=== PATIENT | female | born 1980 | race Hispanic/Latino ===

== ENCOUNTER 2017-04-23 11:32 | Emergency (ER) | payer OTHER ==
[2017-04-23 12:08] LABS: #Basophils 0.1 thou/uL (0.0-0.2); #Eosinphils 0.1 thou/uL (0.0-0.7); #Lymphocytes 2.1 thou/uL (1.20-3.40); #Monocytes 0.6 thou/uL (0.11-0.59); #Neutrophils 8.2 thou/uL (1.40-6.50); %Basophils 0.5 % (0.0-1.0); %Eosinophils 0.9 % (0.0-10.0); %Monocytes 5.7 % (0.0-10.0); Hemoglobin 13.8 g/dL (12.0-16.0); Mean Corpuscular HGB CONC 33.6 g/dL (32.0-36.0); Mean Corpuscular Hemoglobin 31.9 pg (27.0-31.0); Mean Corpuscular Volume 94.8 fl (81.0-99.0); Mean Platelet Volume 7.8 fL (7.4-10.4); Platelet Count 236 thou/uL (130-400); RBC Distribution Width 12.1 % (11.5-14.5); Red Blood Cell (RBC) Count 4.33 mill/uL (4.20-5.40); White Blood Cell (WBC) Count 11.1 thou/uL (4.8-10.8)
[2017-04-23 12:30] LABS: ALT (SGPT) 86 U/L (8-55); AST (SGOT) 59 U/L (5-34); Albumin 4.1 g/dL (3.5-5.0); Alkaline Phosphatase 103 U/L (40-150); Anion Gap 12 mmol/L (10-20); BUN (Urea Nitrogen) 9 mg/dL (7.0-18.7); Bilirubin, Total 0.4 mg/dL (0.2-1.2); Calc. Creatinine Clearance 0 mL/min (70-130); Calcium 9.7 mg/dL (7.8-10.44); Carbon Dioxide 23 mmol/L (22-29); Chloride 105 mmol/L (98-107); Estimated GFR-MDRD 88; Glucose 95 mg/dL (70-105); Protein, Total 8.1 g/dL (6.0-8.3); Sodium 136 mmol/L (136-145)
[2017-04-23 13:59] LABS: Bilirubin Negative (Negative); Blood, Urine Negative (Negative); Clarity CLEAR (Clear); Glucose, Urine (Dipstick) Negative (Negative); Leukocyte Small (Negative); Nitrite Negative (Negative); Protein, Urine (Dipstick) Negative (Neg-Trace); Specific Gravity, Urine 1.025 (1.002-1.036); pH, Urine 6.5 (5.0-9.0)
[2017-04-23 14:01] LABS: Bacteria/HPF 1+ HPF (None Seen); Hyaline Casts/LPF 0-3 HYALINE CAST LPF (0-3 Hyaline); Pathc Cast-AUWi Flag 0.27 (0-2.49); Squamous Epithelial 0-3 HPF (0-3)
[2017-04-23 14:05] LABS: Pregnancy Test - Urine (BHCG) Negative (Negative); Pregu Control Background? CLEAR/WHITE (CLR/WHITE); Pregu Control Bar Appear? YES (CONTROL BAR); RBC/HPF None Seen HPF (0-3); Specific Gravity 1.025 (1.002-1.036)
[2017-04-23] MEDS ORDERED: Ondansetron HCl/PF 4 MG/2 ML Vial ONE (14:30)
[2017-04-23] MEDS ORDERED: Fentanyl 100 MCG/2 ML VIAL ONE (14:30)
[2017-04-23] MEDS ORDERED: Metoclopramide HCl 10 MG/2 ML VIAL ONE (15:46)
[2017-04-23] MEDS ORDERED: Ketorolac Tromethamine 30 MG/ML VIAL ONE (15:46)
== END 2017-04-23 16:34 | disposition home or self-care (01) ==
LOC: ERS 11:32
DX: N39.0 Urinary tract infection, site not specified (principal); R51 Headache
CPT/HCPCS: 36415; 80053; 81003; 81015; 81025; 85025; 87804; 96361; 96374; 96375; J0696; J1885; J2405; J2765; J3010

== ENCOUNTER 2017-07-28 20:10 | Emergency (ER) | payer OTHER ==
[2017-07-28 21:07] LABS: #Basophils 0.1 thou/uL (0.0-0.2); #Eosinphils 0.5 thou/uL (0.0-0.7); #Lymphocytes 2.1 thou/uL (1.20-3.40); #Monocytes 0.6 thou/uL (0.11-0.59); %Basophils 1.1 % (0.0-1.0); %Eosinophils 7.5 % (0.0-10.0); %Lymphocytes 33.7 % (21.0-51.0); %Monocytes 9.2 % (0.0-10.0); %Neutrophils 48.5 % (42.0-75.0); Hemoglobin 12.9 g/dL (12.0-16.0); Mean Corpuscular HGB CONC 34.1 g/dL (32.0-36.0); Mean Corpuscular Volume 90.9 fl (81.0-99.0); Mean Platelet Volume 7.5 fL (7.4-10.4); Platelet Count 302 thou/uL (130-400); RBC Distribution Width 11.8 % (11.5-14.5); Red Blood Cell (RBC) Count 4.15 mill/uL (4.20-5.40); White Blood Cell (WBC) Count 6.2 thou/uL (4.8-10.8)
--- NOTE | 2017-07-28 21:22 | RAD ---
RADIOGRAPH CHEST 1 VIEW: 07/28/17 HISTORY: 36-year-old female with intermittent chest pain. FINDINGS: There are no air space densities, pulmonary edema, pneumothorax, or cardiomegaly. The lateral costop hrenic angles are sharp. IMPRESSION: No acute cardiopulmonary findings. jn [] POS: JIN
[2017-07-28 21:23] LABS: ALT (SGPT) 19 U/L (8-55); AST (SGOT) 24 U/L (5-34); Albumin 4.2 g/dL (3.5-5.0); Alkaline Phosphatase 65 U/L (40-150); Anion Gap 13 mmol/L (10-20); BUN (Urea Nitrogen) 10 mg/dL (7.0-18.7); Bilirubin, Total Less than 0.2 mg/dL (0.2-1.2); CK (CPK) 62 U/L (29-168); Calc. Creatinine Clearance 0 mL/min (70-130); Calcium 9.2 mg/dL (7.8-10.44); Carbon Dioxide 25 mmol/L (22-29); Chloride 107 mmol/L (98-107); Estimated GFR-MDRD 87; Globulin 3.5 g/dL (2.4-3.5); Glucose 111 mg/dL (70-105); Lipase 59 U/L (8-78); Potassium 3.5 mmol/L (3.5-5.1); Protein, Total 7.7 g/dL (6.0-8.3); Sodium 141 mmol/L (136-145)
[2017-07-28 21:28] LABS: CKMB 0.5 ng/mL (0-6.6); Troponin I Less than 0.010 ng/mL (< 0.028)
== END 2017-07-28 22:20 | disposition home or self-care (01) ==
LOC: ERS 20:10
DX: R07.89 Other chest pain (principal); I25.2 Old myocardial infarction; G43.909 Migraine, unspecified, not intractable, without status migrainosus
CPT/HCPCS: 36415; 71045; 80053; 82550; 82553; 83690; 83880; 84484; 85025; 93005

== ENCOUNTER 2017-10-17 07:10 | Outpatient (CLI) | payer OTHER | END 2017-10-17 07:11 | disposition home or self-care (01) | LOC: BICULT 07:10 | PROVIDERS: ATTEND Student in an Organized Health Care Education/Training Program | DX: N94.10 Unspecified dyspareunia (principal); R10.2 Pelvic and perineal pain | CPT/HCPCS: 76856 ==

== ENCOUNTER 2017-11-08 19:30 | Outpatient (CLI) | payer OTHER | END 2017-11-08 19:31 | disposition home or self-care (01) | LOC: SLEEPLAB 19:30 | PROVIDERS: ATTEND Family Medicine | DX: G47.33 Obstructive sleep apnea (adult) (pediatric) (principal); G47.9 Sleep disorder, unspecified; E66.9 Obesity, unspecified; Z68.36 Body mass index [BMI] 36.0-36.9, adult | CPT/HCPCS: 95810 ==

== ENCOUNTER 2017-12-12 19:57 | Emergency (ER) | payer OTHER | END 2017-12-12 21:25 | disposition left against medical advice (07) | LOC: ERS 19:57 | DX: Z53.21 Procedure and treatment not carried out due to patient leaving prior to being seen by health care provider (principal) ==

== ENCOUNTER 2017-12-22 19:30 | Outpatient (CLI) | payer OTHER | END 2017-12-22 19:31 | disposition home or self-care (01) | LOC: SLEEPLAB 19:30 | PROVIDERS: ATTEND Student in an Organized Health Care Education/Training Program | DX: G47.33 Obstructive sleep apnea (adult) (pediatric) (principal); E66.9 Obesity, unspecified; Z68.36 Body mass index [BMI] 36.0-36.9, adult | CPT/HCPCS: 95811 ==

== ENCOUNTER 2018-07-08 23:37 | Observation (INO) | payer OTHER ==
[2018-07-08] MEDS ORDERED: Ondansetron ODT 4 MG TAB ONE (23:43)
[2018-07-09 00:01] LABS: Pregnancy Test - Urine (BHCG) Negative (Negative); Pregu Control Background? CLEAR/WHITE (CLR/WHITE); Pregu Control Bar Appear? YES (CONTROL BAR); Specific Gravity 1.021 (1.002-1.036)
[2018-07-09 00:03] LABS: Bilirubin Negative (Negative); Blood, Urine Negative (Negative); Clarity TURBID (Clear); Glucose, Urine (Dipstick) Negative (Negative); Leukocyte Small (Negative); Nitrite Negative (Negative); Protein, Urine (Dipstick) Negative (Neg-Trace)
[2018-07-09 00:05] LABS: Bacteria/HPF Rare-Few HPF (None Seen); Hyaline Casts/LPF 4-6 HYALINE CAST LPF (0-3 Hyaline); Pathc Cast-AUWi Flag 0.27 (0-2.49)
[2018-07-09 00:22] LABS: #Basophils 0.1 thou/uL (0.0-0.2); #Eosinphils 0.4 thou/uL (0.0-0.7); #Monocytes 0.9 thou/uL (0.11-0.59); #Neutrophils 12.8 thou/uL (1.40-6.50); %Basophils 0.6 % (0.0-1.0); %Eosinophils 2.1 % (0.0-10.0); %Lymphocytes 17.6 % (21.0-51.0); %Monocytes 5.4 % (0.0-10.0); %Neutrophils 74.3 % (42.0-75.0); Hemoglobin 13.5 g/dL (12.0-16.0); Mean Corpuscular HGB CONC 33.1 g/dL (32.0-36.0); Mean Corpuscular Volume 93.8 fL (78.0-98.0); Mean Platelet Volume 8.3 fL (7.4-10.4); Platelet Count 275 thou/uL (130-400); RBC Distribution Width 12.3 % (11.5-14.5); Red Blood Cell (RBC) Count 4.34 mill/uL (4.20-5.40); White Blood Cell (WBC) Count 17.2 thou/uL (4.8-10.8)
[2018-07-09 00:42] LABS: ALT (SGPT) 14 U/L (8-55); AST (SGOT) 15 U/L (5-34); Albumin 4.1 g/dL (3.5-5.0); Alkaline Phosphatase 58 U/L (40-150); Anion Gap 10 mmol/L (10-20); BUN (Urea Nitrogen) 10 mg/dL (7.0-18.7); Bilirubin, Total 0.4 mg/dL (0.2-1.2); Calc. Creatinine Clearance 0 mL/min (70-130); Carbon Dioxide 25 mmol/L (22-29); Chloride 106 mmol/L (98-107); Estimated GFR-MDRD Greater than 90; Glucose 105 mg/dL (70-105); Potassium 3.8 mmol/L (3.5-5.1); Protein, Total 7.1 g/dL (6.0-8.3); Sodium 137 mmol/L (136-145)
[2018-07-09] MEDS ORDERED: Morphine 4 MG/ML VIAL ONE (01:17)
[2018-07-09] MEDS ORDERED: Ondansetron PF 4 MG/2 ML Vial ONE ×2 (01:17→14:46)
[2018-07-09] MEDS ORDERED: Piperacillin/Tazobactam 3.375 GM VIAL ONE (01:56)
[2018-07-09] MEDS ORDERED: Sodium Chloride 0.9% 100 ML ONE (01:57)
[2018-07-09] MEDS ORDERED: Sodium Chloride 0.9% 1,000 ML IV SCH ×2 (02:50→12:19)
[2018-07-09] MEDS ORDERED: Ondansetron PF 4 MG/2 ML Vial IVP PRN ×2 (02:50→12:19)
[2018-07-09] MEDS ORDERED: Ondansetron ODT 4 MG TAB SL PRN (02:50)
[2018-07-09] MEDS ORDERED: Morphine 4 MG/ML VIAL SLOW IVP PRN ×3 (02:53→13:15)
[2018-07-09] MEDS: Morphine 4 MG/ML VIAL SLOW IVP PRN ×3 (02:58→07:43)
[2018-07-09 03:22] VITALS: BMI 35.9
[2018-07-09] MEDS ORDERED: Piperacillin/Tazobactam 3.375 GM in Sodium Chloride 0.9% 100 ML IVPB SCH (08:00)
[2018-07-09 08:10] VITALS: TEMP 97.6
--- NOTE | 2018-07-09 08:12 | HP ---
CHIEF COMPLAINT: Appendicitis. HISTORY OF PRESENT ILLNESS: This is a 37-year-old female, who presents with periumbilical, became right lower quadrant pain last night, described as sharp, 10/10, does not radiate to her right back. Not associated with dysuria. She has had some loose stools. She has had nausea, vomiting. No history of chronic abdominal pain or known inflammatory bowel disease. PAST MEDICAL HISTORY: She denies. PAST SURGICAL HISTORY: Includes cholecystectomy, tubal ligation. MEDICATIONS: None. ALLERGIES: NO KNOWN DRUG ALLERGIES. SOCIAL HISTORY: No smoking, alcohol or other drugs. REVIEW OF SYSTEMS: Ten systems review of systems are otherwise negative unless described above. PHYSICAL EXAMINATION: VITAL SIGNS: Blood pressure 120/80, pulse 68, respirations 14, temperature 98.1. HEENT: Sclerae anicteric. Oropharynx clear. NECK: No lymphadenopathy. CHEST: Clear. HEART: Regular rate and rhythm. ABDOMEN: Soft, tender in the right lower quadrant with localized guarding. No rebound. No abdominal or inguinal hernias. EXTREMITIES: No ischemia or edema to extremities. DIAGNOSTIC STUDIES: CT scan shows acute appendicitis. There are a few nonobstructing stones in the right kidney. ASSESSMENT: Acute appendicitis. PLAN: Laparoscopic appendectomy. Risks, benefits, alternatives discussed. She gives consent, we will do this today. Job ID: [id number]
[2018-07-09 09:27] VITALS: BP 108/60
--- NOTE | 2018-07-09 09:45 | CT ---
CT OF THE ABDOMEN AND PELVIS WITH IV CONTRAST: INDICATION: History of nausea and vomiting. COMPARISON: Prior noncontrast CT dated 06/27/2009. FINDINGS: The lung bases are clear. The gallbladder is surgically absent. There is mild fatty infiltration of the liver. The pancreas, adrenal glands, and spleen appear within normal limits. There is stable right nephroli thiasis. The largest stone is seen measuring 3 mm within the inferior pole. There is thinning invol ving the inferior pole of the right kidney which is stable likely related to prior trauma or infectio n. The left kidney is normal-appearing. No free fluid or enlarged lymph nodes are evident. There is an enlarged appendix in the right lower quadrant measuring 1 cm with mild periappendiceal fa t stranding. There is mild free fluid in the pelvis. The bladder, rectum, and perirectal soft tissues are unremarkable-appearing. No acute osseous abnormality is evident. IMPRESSION: 1. Findings most consistent with noncomplicated appendicitis. 2. Right nephrolithiasis. 3. Fatty liver. 4. Mild free fluid in the pelvis. 5. Fat-containing umbilical hernia. 6. Findings called to Dr. Mcnally at 1:23 a.m. on 07/09/2018. CODE CR POS: BH
[2018-07-09] MEDS ORDERED: Fentanyl 100 MCG/2 ML VIAL ONE ×2 (10:44→12:21)
[2018-07-09] MEDS ORDERED: Bupivacaine/Epinephrine 0.25% 30 ML VIAL ONE (10:45)
[2018-07-09] MEDS ORDERED: Promethazine HCl 25 MG/ML VIAL IM PRN ×2 (12:13→12:19)
[2018-07-09] MEDS ORDERED: Promethazine HCl 25 MG/ML VIAL SLOW IVP PRN (12:13)
[2018-07-09] MEDS ORDERED: Ondansetron HCl/PF 4 MG/2 ML Vial IVP PRN (12:13)
[2018-07-09] MEDS ORDERED: hydrALAZINE 20 MG/ML VIAL SLOW IVP PRN (12:19)
[2018-07-09] MEDS ORDERED: HYDROcodone/Acetaminophen 10/325 mg Tablet PO PRN ×2 (12:19)
[2018-07-09] MEDS ORDERED: Dextrose 50% Abboject 50 ML SYRINGE SLOW IVP PRN (12:19)
[2018-07-09] MEDS ORDERED: Dextrose 5% in Water 1,000 ML IV PRN (12:19)
[2018-07-09] MEDS ORDERED: ISOVUE-370 76%-LOCM 1 ML ONE (14:03)
[2018-07-09] MEDS ORDERED: Lidocaine 1% PF 5 ML VIAL ONE (14:46)
[2018-07-09] MEDS ORDERED: Rocuronium Bromide 10 MG/ML (10ML VIAL) ONE (14:46)
[2018-07-09] MEDS ORDERED: Dexamethasone 20 MG/5 ML VIAL ONE (14:46)
[2018-07-09] MEDS ORDERED: ePHEDrine 50 MG/ML VIAL ONE (14:46)
[2018-07-09] MEDS ORDERED: Glycopyrrolate 0.2 MG/ML 5 ML SYRINGE ONE (14:46)
[2018-07-09] MEDS ORDERED: PROPOFOL 200 MG/20 ML VIAL ONE (14:46)
[2018-07-09] MEDS ORDERED: Famotidine/PF 20 mg/2ml Vial SLOW IVP SCH (21:00)
[2018-07-09] MEDS ORDERED: Famotidine 20 MG TAB PO SCH (21:00)
--- NOTE | 2018-07-10 15:15 | OP ---
DATE OF PROCEDURE: 07/09/2018 PREOPERATIVE DIAGNOSIS: Acute appendicitis. POSTOPERATIVE DIAGNOSIS: Acute appendicitis. PROCEDURE PERFORMED: Laparoscopic appendectomy. ANESTHESIA: General. ESTIMATED BLOOD LOSS: Minimal. COMPLICATIONS: None. SPECIMENS: Appendix. FINDINGS: Appendicitis. DESCRIPTION OF PROCEDURE: The patient was taken to the operating room and laid supine on the operating room table. After general anesthetic was obtained, the abdomen was prepped and draped in a sterile fashion. The Jones catheter had been placed prior to the prep. A curved incision was made below the umbilicus, cautery was dissected down to and score the fascia. Abdominal cavity was entered bluntly using a April clamp. Holding stitch of PDS was placed on each side of the fascia. Behzad trocar was placed. High-flow pneumoperitoneum was obtained. A suprapubic 5 mm port and left lower quadrant 5 mm port were placed under direct visualization. The cecum was rolled over to reveal acute appendicitis. A window was made at the base of the appendix and mesoappendix. Laparoscopic stapler was fired across the base of the appendix. A vascular reload fired across the mesoappendix. The appendix was placed in Endo Catch bag and brought out through the Behzad. There was no bleeding on the staple lines. The right lower quadrant and pelvis were irrigated using sterile solution. All port sites were infiltrated using local anesthetic. All ports were removed under camera visualization without bleeding. Pneumoperitoneum was let down. PDS was used to close the fascial defect below the umbilicus. All incisions were irrigated and closed using 4-0 Monocryl and Dermabond. The patient was sent to Recovery in stable condition. All instrument counts, needle counts, and lap counts were correct. Job ID: [id number]
== END 2018-07-09 15:55 | disposition home or self-care (01) ==
LOC: ERS 23:37 → INTOOBSV 07-09 02:33 → SURG A 07-09 02:33
PROVIDERS: ADMIT Surgery; ATTEND Surgery
PROC: 0DTJ4ZZ Resection of Appendix, Percutaneous Endoscopic Approach (ICD-10-PCS; principal; 2018-07-09)
DX: K35.80 Unspecified acute appendicitis (principal); I25.2 Old myocardial infarction; G43.909 Migraine, unspecified, not intractable, without status migrainosus; Z90.49 Acquired absence of other specified parts of digestive tract; Z98.51 Tubal ligation status; Z79.2 Long term (current) use of antibiotics
CPT/HCPCS: 36415; 74177; 80053; 81003; 81015; 81025; 85025; 87086; 87804; 88304; 96361; 96365; 96375; J1100; J2001; J2270; J2405; J2543; J2704; J3010; J3490; J7050; Q0162; Q9966

== ENCOUNTER 2018-10-09 21:53 | Emergency (ER) | payer OTHER ==
[2018-10-09] MEDS ORDERED: Ketorolac Tromethamine 30 MG/ML VIAL ONE (23:14)
== END 2018-10-09 23:41 | disposition home or self-care (01) ==
LOC: ERS 21:53
DX: K64.4 Residual hemorrhoidal skin tags (principal); G43.909 Migraine, unspecified, not intractable, without status migrainosus; F17.210 Nicotine dependence, cigarettes, uncomplicated
CPT/HCPCS: 96372; J1885

== ENCOUNTER 2020-01-07 18:04 | Emergency (ER) | payer OTHER ==
[2020-01-07 19:06] LABS: #Basophils 0.1 thou/uL (0.0-0.2); #Eosinphils 0.3 thou/uL (0.0-0.7); #Lymphocytes 2.1 thou/uL (1.20-3.40); #Monocytes 0.6 thou/uL (0.11-0.59); #Neutrophils 5.4 thou/uL (1.40-6.50); %Basophils 0.8 % (0.0-1.0); %Eosinophils 3.6 % (0.0-10.0); %Lymphocytes 24.8 % (21.0-51.0); %Monocytes 6.5 % (0.0-10.0); %Neutrophils 64.3 % (42.0-75.0); Hemoglobin 12.7 g/dL (12.0-16.0); Mean Corpuscular HGB CONC 34.1 g/dL (32.0-36.0); Mean Corpuscular Hemoglobin 32.5 pg (27.0-31.0); Mean Corpuscular Volume 95.2 fL (78.0-98.0); Mean Platelet Volume 8.3 fL (7.4-10.4); Platelet Count 269 thou/uL (130-400); RBC Distribution Width 11.8 % (11.5-14.5); Red Blood Cell (RBC) Count 3.91 mill/uL (4.20-5.40); White Blood Cell (WBC) Count 8.5 thou/uL (4.8-10.8)
[2020-01-07] MEDS ORDERED: Lorazepam 2 MG/ML VIAL ONE (19:19)
[2020-01-07 19:21] LABS: ALT (SGPT) 14 U/L (8-55); AST (SGOT) 15 U/L (5-34); Alkaline Phosphatase 56 U/L (40-110); Anion Gap 10 mmol/L (10-20); BUN (Urea Nitrogen) 8 mg/dL (7.0-18.7); Bilirubin, Total 0.3 mg/dL (0.2-1.2); Calc. Creatinine Clearance 0 mL/min (70-130); Calcium 8.7 mg/dL (7.8-10.44); Carbon Dioxide 26 mmol/L (22-29); Chloride 105 mmol/L (98-107); Estimated GFR-MDRD 87; Glucose 110 mg/dL (70-105); Magnesium 1.8 mg/dL (1.6-2.6); Potassium 3.4 mmol/L (3.5-5.1); Sodium 138 mmol/L (136-145)
[2020-01-07 19:23] LABS: Acetaminophen Less than 6.0 mcg/mL (10.0-30.0); Alcohol Less than 10 mg/dL (Less than 10); Salicylate Less than 8.0 mg/dL (15.0-30.0)
--- NOTE | 2020-01-07 20:08 | RAD ---
PORTABLE CHEST: Date: 01-07-2020 PROVIDED CLINICAL HISTORY: Headache, syncope Comparison: 07-28-17 FINDINGS: Cardiac and mediastinal silhouette is within normal limits. No focal consolidation, pleural fluid or pneumothorax apparent. IMPRESSION: No evidence for an acute cardiopulmonary process. POS: DEBORAH
[2020-01-07] MEDS ORDERED: Haloperidol Lactate 5 MG/ML VIAL ONE (20:46)
--- NOTE | 2020-01-07 20:55 | CT ---
HEAD CT WITHOUT CONTRAST: Date: 01-07-2020 Comparison: None History: Syncope Technique: Axial CT imaging at 5 mm intervals from vertex through skull base without contrast. FINDINGS: Imaged paranasal sinuses and mastoid air cells are well aerated. There is no displaced calvarial frac ture, intracranial hemorrhage, midline shift, or mass effect. No ventricular enlargement is seen. IMPRESSION: No intracranial hemorrhage or displaced calvarial fracture. POS: MYNOR
[2020-01-07 21:57] LABS: Pregnancy Test - Urine (BHCG) Negative (Negative); Pregu Control Background? CLEAR/WHITE (CLR/WHITE); Pregu Control Bar Appear? YES (CONTROL BAR); Specific Gravity 1.011 (1.002-1.036)
[2020-01-07 22:05] LABS: Amphetamine Not Detected (NotDetected); Barbiturates Screen Not Detected (NotDetected); Benzodiazepine Screen Not Detected (NotDetected); Cocaine Metabolite Screen Not Detected (NotDetected); Medtox Control Line Valid? VALID (VALID); Medtox Reader # READER 4; Methadone Not Detected (NotDetected); Methamphetamine Not Detected (NotDetected); Opiate Screen Not Detected (NotDetected); Oxycodone Screen Not Detected (NotDetected); Phencyclidine (PCP) Not Detected (NotDetected); THC/Cannabinoid Screen Detected (NotDetected); Tricyclic Screen Not Detected (NotDetected)
== END 2020-01-07 23:10 | disposition home or self-care (01) ==
LOC: ERS 18:04
DX: F12.10 Cannabis abuse, uncomplicated (principal); R55 Syncope and collapse; R51 Headache; F17.210 Nicotine dependence, cigarettes, uncomplicated
CPT/HCPCS: 36415; 70450; 71045; 80053; 80306; 80307; 81025; 83735; 84484; 85025; 93005; 96361; 96374; 96375; J1630; J2060

== ENCOUNTER 2021-10-04 13:58 | Emergency (ER) | payer OTHER ==
[2021-10-04] MEDS ORDERED: Meclizine HCl 25 MG TAB ONE (14:19)
[2021-10-04] MEDS ORDERED: Ondansetron PF 4 MG/2 ML Vial ONE (14:19)
[2021-10-04 14:35] LABS: #Basophils 0.1 thou/uL (0.0-0.2); #Eosinphils 0.1 thou/uL (0.0-0.7); #Monocytes 0.4 thou/uL (0.11-0.59); %Basophils 1.2 % (0.0-1.0); %Eosinophils 1.7 % (0.0-10.0); %Lymphocytes 23.3 % (21.0-51.0); %Monocytes 4.7 % (0.0-10.0); %Neutrophils 69.2 % (42.0-75.0); Hemoglobin 13.8 g/dL (12.0-16.0); Mean Corpuscular HGB CONC 33.8 g/dL (32.0-36.0); Mean Corpuscular Hemoglobin 32.9 pg (27.0-31.0); Mean Corpuscular Volume 97.2 fL (78.0-98.0); Mean Platelet Volume 8.1 fL (7.4-10.4); Platelet Count 251 thou/uL (130-400); Red Blood Cell (RBC) Count 4.19 mill/uL (4.20-5.40); White Blood Cell (WBC) Count 8.7 thou/uL (4.8-10.8)
[2021-10-04 14:38] LABS: BHCG - Serum Negative (NEGATIVE); Pregs Control Background? CLEAR/WHITE (CLR/WHITE); Pregs Control Bar Appear? YES (CONTROL BAR)
[2021-10-04 14:46] LABS: ALT (SGPT) 11 U/L (8-55); AST (SGOT) 15 U/L (5-34); Albumin 4.1 g/dL (3.5-5.0); Alkaline Phosphatase 56 U/L (40-110); Anion Gap 13 mmol/L (10-20); BUN (Urea Nitrogen) 10 mg/dL (7.0-18.7); Bilirubin, Total 0.6 mg/dL (0.2-1.2); Calc. Creatinine Clearance 0 mL/min (70-130); Calcium 8.9 mg/dL (7.8-10.44); Carbon Dioxide 22 mmol/L (22-29); Chloride 106 mmol/L (98-107); Globulin 3.4 g/dL (2.4-3.5); Glucose 142 mg/dL (70-105); Potassium 3.7 mmol/L (3.5-5.1); Protein, Total 7.5 g/dL (6.0-8.3); Sodium 137 mmol/L (136-145)
== END 2021-10-04 15:57 | disposition home or self-care (01) ==
LOC: ERS 13:58
DX: R42 Dizziness and giddiness (principal); I25.2 Old myocardial infarction; F17.210 Nicotine dependence, cigarettes, uncomplicated
CPT/HCPCS: 70450; 80053; 84703; 85025; 93005; 96361; 96374; J2405

== ENCOUNTER 2022-12-08 00:23 | Emergency (ER) | payer OTHER | END 2022-12-08 00:54 | disposition home or self-care (01) | LOC: ERS 00:23 | DX: T16.1XXA Foreign body in right ear, initial encounter (principal); F17.210 Nicotine dependence, cigarettes, uncomplicated | CPT/HCPCS: 69200 ==

== ENCOUNTER 2025-01-22 03:30 | Emergency (ER) | payer MEDICAID ==
[2025-01-22] MEDS ORDERED: Ketorolac Tromethamine 30 MG (1 mL) VIAL ONE (06:44)
[2025-01-22 06:53] LABS: #Basophils 0.06 10x3/uL (0.0-0.2); #Eosinophils 0.32 10x3/uL (0.0-0.7); #Monocytes 0.86 10x3/uL (0.11-0.59); #Neutrophils 6.89 10x3/uL (1.40-6.50); %Basophils 0.5 % (0.0-1.0); %Eosinophils 2.9 % (0.0-10.0); %Lymphocytes 26.5 % (21.0-51.0); %Monocytes 7.7 % (0.0-10.0); %Neutrophils 62.1 % (42.0-75.0); Hematocrit 39.7 % (36.0-47.0); Hemoglobin 13.1 g/dL (12.0-16.0); Mean Corpuscular Hemoglobin 30.3 pg (27.0-31.0); Mean Corpuscular Volume 91.9 fL (78.0-98.0); Platelet Count 293 10x3/uL (130-400); Red Blood Cell (RBC) Count 4.32 mill/uL (4.20-5.40); White Blood Cell (WBC) Count 11.10 10x3/uL (4.8-10.8)
[2025-01-22 07:08] LABS: ALT (SGPT) 14 U/L (Less than 34); AST (SGOT) 27 U/L (11-34); Albumin 4.2 g/dL (3.1-4.5); Alkaline Phosphatase 66 U/L (40-110); Anion Gap 15 mmol/L (10-20); BUN (Urea Nitrogen) 15 mg/dL (7.0-18.7); Bilirubin, Total 0.2 mg/dL (0.3-1.2); Calc. Creatinine Clearance 0 mL/min (70-130); Calcium 9.1 mg/dL (7.8-10.44); Carbon Dioxide 23 mmol/L (22-29); Chloride 107 mmol/L (98-107); Globulin 3.7 g/dL (2.4-3.5); Glucose 114 mg/dL (70-105); Potassium 3.9 mmol/L (3.5-5.1); Sodium 141 mmol/L (136-145)
[2025-01-22] MEDS ORDERED: Iopamidol-370 76% 500 ML MDV (1 ML CHARGE) ONE (10:09)
== END 2025-01-22 13:10 | disposition home or self-care (01) ==
LOC: ERS 03:30
DX: M54.2 Cervicalgia (principal); M62.838 Other muscle spasm; M19.90 Unspecified osteoarthritis, unspecified site; I25.2 Old myocardial infarction; F17.200 Nicotine dependence, unspecified, uncomplicated
CPT/HCPCS: 36415; 70491; 72141; 80053; 85025; 96374; J1885; Q9967